=== PATIENT | male | born 1990 | race Caucasian/White ===

== ENCOUNTER 2023-06-23 01:45 | Emergency (ER) | payer MEDICAID ==
[~2023-06-23] VITALS: Ht 177.8 cm; Wt 83.9 kg
[2023-06-23 02:15] VITALS: BP 149/97; PULSE 90; RESP 16; TEMP 98.2; O2SAT 98
== END 2023-06-23 03:50 | disposition left against medical advice (07) ==
LOC: MED 01:45
DX: Z76.0 Encounter for issue of repeat prescription (principal); Z53.21 Procedure and treatment not carried out due to patient leaving prior to being seen by health care provider
CPT/HCPCS: 99281